=== PATIENT | female | born 1985 | race Caucasian/White ===

== ENCOUNTER 2025-02-19 22:40 | Emergency (ER) | payer BC, SELFPAY ==
[2025-02-19 23:24] LABS: Bacteria/HPF None Seen HPF (None Seen); CAUTI Indications for Culture Pelvic or flank pain; Glucose, Urine (Dipstick) Normal (Negative); Leukocyte Negative Leu/uL (Negative); Protein, Urine (Dipstick) Negative (Neg-Trace); RBC/HPF 0-3 HPF (0-3); Specific Gravity, Urine 1.009 (1.002-1.036); WBC/HPF 0-3 HPF (0-3)
[2025-02-19 23:26] LABS: Pregnancy Test - Urine (BHCG) Negative (Negative); Pregu Control Background? CLEAR/WHITE (CLR/WHITE); Pregu Control Bar Appear? YES (CONTROL BAR)
[2025-02-19 23:27] LABS: Urine Culture Reflex No No
[2025-02-19 23:59] LABS: #Basophils 0.03 10x3/uL (0.0-0.2); #Eosinophils 0.04 10x3/uL (0.0-0.7); #Monocytes 0.38 10x3/uL (0.11-0.59); #Neutrophils 5.73 10x3/uL (1.40-6.50); %Basophils 0.4 % (0.0-1.0); %Eosinophils 0.5 % (0.0-10.0); %Lymphocytes 14.8 % (21.0-51.0); %Monocytes 5.2 % (0.0-10.0); %Neutrophils 78.7 % (42.0-75.0); Hematocrit 38.0 % (36.0-47.0); Hemoglobin 12.9 g/dL (12.0-16.0); Mean Corpuscular Hemoglobin 29.5 pg (27.0-31.0); Mean Corpuscular Volume 87.0 fL (78.0-98.0); Platelet Count 310 10x3/uL (130-400); Red Blood Cell (RBC) Count 4.37 mill/uL (4.20-5.40); White Blood Cell (WBC) Count 7.29 10x3/uL (4.8-10.8)
[2025-02-20 00:19] LABS: ALT (SGPT) 69 U/L (Less than 34); AST (SGOT) 77 U/L (11-34); Albumin 3.8 g/dL (3.1-4.5); Alkaline Phosphatase 223 U/L (40-110); Anion Gap 17 mmol/L (10-20); BUN (Urea Nitrogen) 6 mg/dL (7.0-18.7); Bilirubin, Total 0.4 mg/dL (0.3-1.2); Calc. Creatinine Clearance 0 mL/min (70-130); Calcium 9.1 mg/dL (7.8-10.44); Carbon Dioxide 22 mmol/L (22-29); Chloride 105 mmol/L (98-107); Globulin 3.4 g/dL (2.4-3.5); Glucose 95 mg/dL (70-105); Lipase 14 U/L (8-78); Potassium 3.9 mmol/L (3.5-5.1); Sodium 140 mmol/L (136-145)
== END 2025-02-20 01:30 | disposition home or self-care (01) ==
LOC: ERS 22:40
DX: K80.20 Calculus of gallbladder without cholecystitis without obstruction (principal); F17.210 Nicotine dependence, cigarettes, uncomplicated
CPT/HCPCS: 76705; 80053; 81001; 81025; 83690; 85025